=== PATIENT | female | born 1995 ===

== ENCOUNTER 2023-10-04 09:22 | Outpatient (CLI) | payer OTHER | END 2023-10-04 09:24 | disposition home or self-care (01) | LOC: SONOGRAMA 09:22 | PROVIDERS: ATTEND Pathology Anatomic Pathology & Clinical Pathology | DX: D34 Benign neoplasm of thyroid gland (principal); E06.3 Autoimmune thyroiditis; E04.9 Nontoxic goiter, unspecified ==